=== PATIENT | female | born 1970 | race Caucasian/White ===

== ENCOUNTER → 2018-03-11 | Outpatient (CLI) | payer MEDICAID | LOC: FIMAGING 15:01 | PROVIDERS: ATTEND Family Medicine | DX: M23.221 Derangement of posterior horn of medial meniscus due to old tear or injury, right knee (principal); M23.241 Derangement of anterior horn of lateral meniscus due to old tear or injury, right knee ==

== ENCOUNTER → 2018-09-15 | Outpatient (CLI) | payer MEDICAID | LOC: FIMAGING 09:20 ==